=== PATIENT | female | born 1930 | race Asian ===

== ENCOUNTER 2017-09-03 15:39 | Inpatient (IN) | payer OTHER, BC ==
[2017-09-03] MEDS: SOD CHLORIDE 0.9% 500 ML IV (16:10)
[2017-09-03] MEDS: morphine 2 MG INJ IV (16:10)
[2017-09-03] MEDS: ONDANSETRON 4 MG INJ IV (16:10)
[2017-09-03 16:11] LABS: ADD MAN DIFF? NO
[2017-09-03 16:15] LABS: ABNORMAL IP MESSAGE 1; BASOPHILS % 0.1 % (0.0-2.0); EOSINOPHILS % 0.1 % (0.0-7.0); HEMATOCRIT 31.5 % (37.0-47.0); HEMOGLOBIN 10.8 g/dl (12.0-16.0); LYMPHOCYTES # 0.6 10^3/ul (0.8-2.9); MEAN CORPUSCULAR HEMOGLOBIN 34.2 pg (29.0-33.0); MEAN CORPUSCULAR HGB CONC 34.3 g/dl (32.0-37.0); MEAN CORPUSCULAR VOLUME 99.7 fl (82.0-101.0); MEAN PLATELET VOLUME 8.7 fl (7.4-10.4); MONOCYTE # 0.5 10^3/ul (0.3-0.9); MONOCYTES % 4.4 % (0.0-11.0); NEUTROPHIL # 10.2 10^3/ul (1.6-7.5); PLATELET COUNT 138 10^3/UL (140-415); RED BLOOD COUNT 3.16 10^6/ul (4.20-5.40); RED CELL DISTRIBUTION WIDTH 13.8 % (11.5-14.5)
[2017-09-03 16:15] LABS: WHITE BLOOD COUNT 11.3 10^3/ul (4.8-10.8)
[2017-09-03 16:26] LABS: POSITIVE DIFF @See below
[2017-09-03 16:30] LABS: PROTIME 14.4 Sec (11.9-14.9); PT RATIO 1.1
[2017-09-03 16:31] LABS: PARTIAL THROMBOPLASTIN TIME 29.3 Sec (25.0-35.0)
[2017-09-03 16:33] LABS: ALANINE AMINOTRANSFERASE 38 IU/L (13-69); ALBUMIN 3.8 g/dl (3.3-4.9); ALBUMIN/GLOBULIN RATIO 1.11; ALKALINE PHOSPHATASE 67 IU/L (42-121); ANION GAP 12 (8-16); ASPARTATE AMINO TRANSFERASE 36 IU/L (15-46); BILIRUBIN,INDIRECT 0.8 mg/dl (0-1.1); BILIRUBIN,TOTAL 0.8 mg/dl (0.2-1.3); BLOOD UREA NITROGEN 29 mg/dl (7-20); CARBON DIOXIDE 27 mmol/L (21-31); CHLORIDE 102 mmol/L (97-110); CREATINE KINASE 198 IU/L (23-200); CREATININE 0.92 mg/dl (0.44-1.00); GLUCOSE 140 mg/dl (70-220); POTASSIUM 4.1 mmol/L (3.5-5.1); SODIUM 137 mmol/L (135-144); TOTAL PROTEIN 7.2 g/dl (6.1-8.1)
[2017-09-03 16:44] LABS: B-TYPE NATRIURETIC PEPTIDE 421 PG/ML (0-450); CK INDEX 0.9; CK-MB 1.82 ng/ml (0.0-2.4); TROPONIN-I 0.018 ng/ml (0.000-0.120)
[2017-09-03] MEDS ORDERED: ACETAMINOPHEN 325 MG TAB PO (18:30)
[2017-09-03] MEDS ORDERED: ONDANSETRON 4 MG INJ IV ×2 (18:30→22:30)
[2017-09-03] MEDS: PANTOPRAZOLE (EC) 40 MG TAB PO (21:31)
[2017-09-03] MEDS ORDERED: ALBUTEROL/IPRATROPIUM (NEB) 3 ML AMP HHN (22:30)
[2017-09-03] MEDS ORDERED: NACL 0.9% 3 ML SYG IV (22:30)
[2017-09-03] MEDS: HYDROCODONE/APAP (5/325) TAB PO (23:52)
[2017-09-04] MEDS: HYDROCODONE/APAP (5/325) TAB PO ×3 (06:07→22:52)
[2017-09-04 06:10] LABS: ADD MAN DIFF? NO
[2017-09-04 06:17] LABS: BASOPHILS % 0.4 % (0.0-2.0); EOSINOPHILS % 0.3 % (0.0-7.0); HEMATOCRIT 23.8 % (37.0-47.0); HEMOGLOBIN 8.2 g/dl (12.0-16.0); LYMPHOCYTES # 0.8 10^3/ul (0.8-2.9); MEAN CORPUSCULAR HGB CONC 34.5 g/dl (32.0-37.0); MEAN CORPUSCULAR VOLUME 98.8 fl (82.0-101.0); MEAN PLATELET VOLUME 9.2 fl (7.4-10.4); MONOCYTE # 0.5 10^3/ul (0.3-0.9); MONOCYTES % 7.8 % (0.0-11.0); NEUTROPHIL # 5.5 10^3/ul (1.6-7.5); NEUTROPHILS % 80.2 % (39.0-77.0); PLATELET COUNT 110 10^3/UL (140-415); RED BLOOD COUNT 2.41 10^6/ul (4.20-5.40)
[2017-09-04 06:17] LABS: WHITE BLOOD COUNT 6.8 10^3/ul (4.8-10.8)
[2017-09-04 07:03] LABS: ALANINE AMINOTRANSFERASE 31 IU/L (13-69); ALBUMIN 3.3 g/dl (3.3-4.9); ALBUMIN/GLOBULIN RATIO 1.26; ALKALINE PHOSPHATASE 46 IU/L (42-121); ANION GAP 13 (8-16); ASPARTATE AMINO TRANSFERASE 30 IU/L (15-46); BILIRUBIN,INDIRECT 0.6 mg/dl (0-1.1); BILIRUBIN,TOTAL 0.6 mg/dl (0.2-1.3); BLOOD UREA NITROGEN 36 mg/dl (7-20); CALCIUM 8.7 mg/dl (8.4-10.2); CARBON DIOXIDE 27 mmol/L (21-31); CHLORIDE 100 mmol/L (97-110); CREATININE 0.96 mg/dl (0.44-1.00); GLUCOSE 134 mg/dl (70-220); MAGNESIUM 2.6 mg/dl (1.7-2.5); PHOSPHORUS 5.6 mg/dl (2.5-4.9); POTASSIUM 4.9 mmol/L (3.5-5.1); SODIUM 135 mmol/L (135-144); TOTAL PROTEIN 5.9 g/dl (6.1-8.1)
[2017-09-04] MEDS: HEPARIN 5,000 UNIT/0.5 ML VIAL SC ×2 (10:13→20:56)
[2017-09-05] MEDS: HYDROCODONE/APAP (5/325) TAB PO (05:40)
[2017-09-05] MEDS: HEPARIN 5,000 UNIT/0.5 ML VIAL SC ×3 (08:40→22:18)
[2017-09-05] MEDS: DOCUSATE SODIUM 100 MG CAP PO ×2 (20:01→21:27)
[2017-09-05] MEDS: ACETAMINOPHEN 325 MG TAB PO (21:27)
[2017-09-05] MEDS: traMADol 50 MG TAB PO (23:20)
[2017-09-06] MEDS: DOCUSATE SODIUM 100 MG CAP PO (08:36)
[2017-09-06] MEDS: HEPARIN 5,000 UNIT/0.5 ML VIAL SC (08:39)
== END 2017-09-06 20:35 | DRG 536 ==
LOC: MS2 23:17 → E/R 15:39 → MS2 18:17
DX: S32.512A Fracture of superior rim of left pubis, initial encounter for closed fracture (principal); I10 Essential (primary) hypertension; K21.9 Gastro-esophageal reflux disease without esophagitis; S32.591A Other specified fracture of right pubis, initial encounter for closed fracture; W11.XXXA Fall on and from ladder, initial encounter; Y93.H2 Activity, gardening and landscaping; Y92.096 Garden or yard of other non-institutional residence as the place of occurrence of the external cause; Y99.8 Other external cause status; Z79.82 Long term (current) use of aspirin; Z86.73 Personal history of transient ischemic attack (TIA), and cerebral infarction without residual deficits
CPT/HCPCS: 70450; 71045; 72125; 72170; 72192; 73510; 80053; 82550; 82553; 83735; 83880; 84100; 84484; 85025; 85610; 85730; 86850; 86900; 86901; 87040; 87086; 93005; 93306; 96374; 96375; 97116; 97161; 97530; 99285-25